=== PATIENT | female | born 1930 | race Caucasian/White ===

== ENCOUNTER 2019-11-11 11:07 | Inpatient (IN) ==
--- NOTE | 2019-11-11 11:38 | Emergency Department Note ---
SOB HPI General Chief Complaint: Shortness of Breath/Dyspnea Stated Complaint: SOB Time Seen by Provider: 11/11/19 11:15 Source: patient Mode of arrival: ambulatory Limitations: no limitations History of Present Illness HPI Narrative: 89-year-old female patient transferred to the emergency department from [facility] with chief complaint of worsening shortness of breath and lower extremity edema over the last 4 days. Patient admits to known history of congestive heart failure. She mentions her last 4 days she is experienced increasing lower extremity edema. She has been more short of breath and using her oxygen more frequently. She has been taking her medications as directed. She does admit to eating considerable amounts of sodium where she lives. She had a mild episode of left-sided chest pain yesterday. She denies chest pain or palpitations during today's visit. She mentions seeing a card iologist several months ago. She is unsure of her cardiogram was. ROS: Denies systemic illness, fever, sweats, chills. Denies runny nose, sinus congestion, or cough. Denies abdominal pain, nausea, vomiting, or diarrhea. Denies dysuria, hematuria, urinary frequency, or urinary urgency. Denies generalized or focal weakness. Related Data Home Medications Medication Instructions Recorded Confirmed melatonin 5 mg tablet 5 mg PO HS PRN tab 02/12/15 11/11/19 simvastatin 20 mg PO QDAY 11/11/19 11/11/19 trazodone 50 mg PO QHS PRN 11/11/19 11/11/19 Previous Rx's Medication Instructions Recorded Power Wheelchair #1 ea 12/08/18 hydrochlorothiazide 25 mg tablet 25 mg PO QDAY #90 tab 02/18/19 metformin 500 mg tablet,extended 1,000 mg PO BID #360 tab 06/01/19 release 24 hr OXYGEN #1 ea 07/13/19 furosemide 20 mg tablet See Rx Instructions PO QDAY #60 tab 07/22/19 levothyroxine 75 mcg tablet 75 mcg PO QDAY #90 tab 08/18/19 losartan 100 mg tablet 100 mg PO QDAY #90 tab 08/31/19 raloxifene 60 mg tablet 60 mg PO QDAY #90 tab 08/31/19 meclizine 25 mg tablet 25 mg PO BID PRN #30 tab 10/11/19 potassium chloride 10 mEq 10 meq PO QDAY #30 tab 10/11/19 tablet,extended release ropinirole 0.5 mg tablet 0.5 mg PO QHS #90 tab 10/11/19 hydrocodone 7.5 mg-acetaminophen 1 tab PO TID PRN #90 tab 10/19/19 325 mg tablet digoxin 125 mcg (0.125 mg) tablet 125 mcg PO QDAY 90 Days #90 tab 11/01/19 Allergies Allergy/AdvReac Type Severity Reaction Status Date / Time Penicillins [PENICILLINS] Allergy Unknown Rash Verified 10/11/19 10:04 iron AdvReac Unknown Diarrhea Verified 10/11/19 10:04 fosmax Allergy Unknown Shakiness Uncoded 10/11/19 10:04 Review of Systems All systems ED: reviewed and negative except as stated. [facility] Medical/Surgical/Family History All Active Problems (Updated 11/11/19 @ 14:11 by Alex Moody PA-C) Epistaxis (Acute) Heart failure (Acute) Acute on chronic congestive heart failure (Acute) Respiratory failure (Chronic) Diabetes mellitus (Chronic) Prediabetes (Chronic) Acute vestibular neuronitis (Chronic) Community acquired pneumonia (Chronic) Scoliosis (Chronic) Spinal stenosis (Chronic) Diarrhea (Chronic) Pruritus (Chronic) Obstructive sleep apnea (Chronic) Contusion of hip, right (Chronic) Urinary tract infection (Chronic) Fatigue (Chronic) Weakness of right leg (Chronic) History of tonsillectomy (Chronic) History of open reduction and internal fixation (ORIF) procedure (Chronic) History of laminectomy (Chronic) History of basal cell carcinoma (Chronic) History of adenoidectomy (Chronic) History of appendectomy (Chronic) Restless legs syndrome (Chronic) Osteopenia (Chronic) Osteoarthritis (Chronic) Menopausal and postmenopausal disorder (Chronic) Low back pain (Chronic) Acquired hypothyroidism (Chronic) Hypertension, essential (Chronic) Hyperlipidemia (Chronic) Left elbow fracture (Chronic) Colon cancer (Chronic) Anemia (Chronic) Medical History Acquired hypothyroidism (Chronic) Acute vestibular neuronitis (Chronic) Anemia (Chronic) Colon cancer (Chronic) Community acquired pneumonia (Chronic) Contusion of hip, right (Chronic) Diarrhea (Chronic) Fatigue (Chronic) Hyperlipidemia (Chronic) Hypertension, essential (Chronic) Left elbow fracture (Chronic) Low back pain (Chronic) Menopausal and postmenopausal disorder (Chronic) Obstructive sleep apnea (Chronic) Osteoarthritis (Chronic) Osteopenia (Chronic) Parkinson disease (Inactive) Prediabetes (Chronic) Pruritus (Chronic) Respiratory failure (Chronic) Restless legs syndrome (Chronic) Scoliosis (Chronic) Spinal stenosis (Chronic) Type 2 diabetes mellitus (Inactive) Urinary tract infection (Chronic) Weakness of right leg (Chronic) Worsening weakness in her right leg with increased pain Surgical History History of adenoidectomy (Chronic) History of appendectomy (Chronic) Ruptured History of basal cell carcinoma (Chronic) Back History of laminectomy (Chronic) Lumbar Fusion History of open reduction and internal fixation (ORIF) procedure (Chronic) L Elbow History of tonsillectomy (Chronic) Family History Father , of Colon Cancer 76y Malignant neoplasm of colon Mother , of Colon Cancer 89y Malignant neoplasm of colon Unknown Alzheimer's disease Essential hypertension Social History Smoking Status: Never smoker Alcohol Intake Frequency: a few times a month Substance Use: does not use Exam General Limitations: no limitations General appearance: other (Well-developed, well-nourished, very pleasant 89-year-old female patient laying semirecumbent on the emergency room gurney in mild respiratory distress. She is not tachypneic. However, she does speak in broken sentences. She is currently on oxygen at 2 L via nasal cannula. Her oxygen saturations are good at 96%. She is afebrile and normotensive.) Head Head: atraumatic and normocephalic Eye Eye: Present normal appearance, PERRL and EOMI; Absent scleral icterus and conjunctival injection ENT ENT: Present normal oropharynx and mucous membranes moist Neck Neck: Present trachea midline; Absent lymphadenopathy Chest Chest: Present symmetric chest wall rise Respiratory Respiratory: Present respiratory distress (Mild respiratory distress), rales/crackles (Crackles heard to the bases and mid chest bilateral.) and decreased breath sounds; Absent normal lung sounds bilaterally, wheezes, stridor, accessory muscle use and prolonged expiratory phase Cardiovascular Cardiovascular: Present regular rate, normal rhythm and systolic murmur; Absent diastolic murmur Adbominal Abdominal: Present soft, tenderness (Mild diffuse tenderness to palpation throughout the abdomen.) and normal bowel sounds; Absent distention, guarding, rebound, rigidity, organomegaly and mass Extremities Extremities: Present full ROM, tenderness (Moderate tenderness palpation throughout the ankle and calves bilateral.), normal capillary refill and pedal edema (+12 pitting edema from the ankles to midcalf bilateral.); Absent normal inspection (Overlying lower extremity dermis is erythematous and taut appearing.) and cyanosis Neurological Neurological: Present alert, oriented X3 and reflexes normal; Absent motor sensory deficit Psychiatric Psychiatric: Present normal affect, normal mood and pleasant Skin Skin: Present warm, dry and normal color (With the exception of the erythema to the lower extremities.) Course Course Course Narrative: Patient has known history of congestive heart failure. She mentions her weight normally fluctuates from 140-145 pounds. However, her weight today is 167pounds but I am unsure of the chronicity of the increase. I am going to order a portable chest x-ray looking for pulmonary edema. We will e valuate her kidney functions prior to diuresis. Chemistry panel shows BUN 12 and creatinine 0.9. With this in mind patient was given 40 mg of Lasix IVP. Portable chest x-ray showed moderate left and small right by basilar infiltrates and small effusions progressing. There is also mention of mild CHF. I discussed the x-ray findings with my collaborating physician (Dr. Boyle) and at this time he recommended discussing the case with the radiologist to determine if these effusions are amicable to draining. I discussed thoracentesis with the radiologist (Dr. Hager) who mention that the effusions are much too small to be drained. I reviewed the patient's other diagnostics and they show the following: CBC hemoglobin 10.1, hematocrit 32.4, all others the normal limits. CMP glucose 110, all others normal limits. Troponin less than 0.01. proBNP 5323. Patient has been up to use the restroom multiple times. Nursing staff was unable to capture the for several voids. However they have captured the last 2 or 3. Patient has had 300-400 mL's out that has been measured. Upon reassessment patient tells me she is feeling a bit better. She tells me that she has less noticeable swelling in her lower extremities. Due to the patient's history of CHF and demonstrated clinical improvement the hospitalist (Dr. Garland) was consulted possible admission. I discussed the case with the hospitalist who concurred that the patient should likely stay for continued treatment. Next, I discussed admission with the patient who verbalized understanding. Patient is going to be admitted to the facility under the care of the hospitalist. All further treatment decisions, modalities, and ultimate patient disposition will be carried out by the hospitalist. Vital Signs Vital signs: Vital Signs Temperature 98.1 F 11/11/19 11:08 Pulse Rate 79 11/11/19 11:08 Respiratory Rate 20 11/11/19 11:08 Blood Pressure 136/74 11/11/19 11:08 Pulse Oximetry (%) 96 11/11/19 11:08 Temperature 98.1 F 11/11/19 11:08 Pulse Rate 91 H 11/11/19 15:47 Respiratory Rate 25 H 11/11/19 15:56 Blood Pressure 153/95 11/11/19 15:56 Pulse Oximetry (%) 93 11/11/19 15:47 [facility] Lab Data Lab results reviewed: Yes I reviewed the patient's lab results. Result diagrams: 11/11/19 11:40 11/11/19 14:34 Labs: Lab Results 11/11/19 11/11/19 11/11/19 Range/Units 11:40 11:40 11:40 WBC 7.3 (4.50-11.00) K/mcL RBC 4.17 (3.59-5.38) M/mcL Hgb 10.1 L (11.2-15.7) g/dL Hct 32.4 L (34.1-44.9) % POC Hct 33.0 L (36.0-48.0) % MCV 77.7 L (80.0-100.0) fL MCH 24.2 L (26.0-34.0) pg MCHC 31.2 (31.0-36.0) g/dL RDW 16.1 H (11.5-14.5) % Plt Count 280 (140-440) K/mcL MPV 9.4 (7.4-10.4) fL Gran % 69.0 (38.0-78.0) % Lymph % (Auto) 21.5 (15.5-49.0) % [place] % (Auto) 7.5 (1.0-12.0) % Eos % (Auto) 1.6 (0.0-7.0) % Baso % (Auto) 0.4 (0.0-2.0) % Gran # 5.03 (1.80-8.00) K/mcL Lymph # (Auto) 1.57 (1.50-4.80) K/mcL [place] # (Auto) 0.55 (0.10-0.90) K/mcL Eos # (Auto) 0.12 (0.00-0.70) K/mcL Baso # (Auto) 0.03 (0.00-0.30) K/mcL POC Sodium 137 (133-145) mmol/L Sodium 135 (133-145) mmol/L POC Potassium 4.5 (3.3-5.1) mmol/L Potassium 4.4 (3.3-5.1) mmol/L POC Chloride 101 (96-108) mmol/L Chloride 102 (96-108) mmol/L Carbon Dioxide 22 (22-30) mmol/L POC Total CO2 23 (22-30) mmol/L Anion Gap 11.0 (8-16) POC BUN 12 (8-23) mg/dl BUN 13 (8-23) mg/dl Creatinine 0.9 (0.6-1.1) mg/dl POC Creatinine 0.9 (0.6-1.1) mg/dl GFR Calculation 57 Glucose 110 H (70-105) mg/dL POC Glucose 109 H (70-105) mg/dL Calcium 9.0 (8.6-10.4) mg/dl POC WB Ioniz Calcium 1.18 (1.16-1.32) mmol/L Total Bilirubin 0.5 (0.0-1.0) mg/dL AST 16 (0-37) U/l ALT 6 (0-40) U/l Alkaline Phosphatase 65 (39-117) U/L Troponin T < 0.01 (0-0.03) ng/ml NT-Pro-B Natriuret Pep 5323.0 H (0-450) pg/ml Total Protein 6.5 (5.9-8.4) gm/dL Albumin 3.8 (3.2-5.2) gm/dL Globulin 2.7 (2.2-3.7) gm/dL Albumin/Globulin Ratio 1.4 (1.0-2.3) Urine Color Urine Appearance Urine pH (5.0-9.0) Ur Specific [place] (1.000-1.035) Urine Protein (NEG) mg/dL Urine Glucose (UA) (NEG) mg/dL Urine Ketones (NEG) mg/dL Urine Occult Blood (<0.03) mg/dL Urine Nitrate (NEG) Urine Bilirubin (NEG) mg/dL Urine Urobilinogen (NEG) mg/dL Ur Leukocyte Esterase (NEG) /uL Urine RBC (0-1) /hpf Urine WBC (0-4) /hpf Ur Squamous Epith Cells (0-4) /hpf Ur Transition Epith Cell (0-2) /hpf Urine Bacteria (0) /hpf Urine Mucus (0) /hpf Ur Culture Indicated? 11/11/19 11/11/19 11/11/19 Range/Units 12:45 14:34 14:34 WBC (4.50-11.00) K/mcL RBC (3.59-5.38) M/mcL Hgb (11.2-15.7) g/dL Hct (34.1-44.9) % POC Hct (36.0-48.0) % MCV (80.0-100.0) fL MCH (26.0-34.0) pg MCHC (31.0-36.0) g/dL RDW (11.5-14.5) % Plt Count (140-440) K/mcL MPV (7.4-10.4) fL Gran % (38.0-78.0) % Lymph % (Auto) (15.5-49.0) % [place] % (Auto) (1.0-12.0) % Eos % (Auto) (0.0-7.0) % Baso % (Auto) (0.0-2.0) % Gran # (1.80-8.00) K/mcL Lymph # (Auto) (1.50-4.80) K/mcL [place] # (Auto) (0.10-0.90) K/mcL Eos # (Auto) (0.00-0.70) K/mcL Baso # (Auto) (0.00-0.30) K/mcL POC Sodium (133-145) mmol/L Sodium 141 (133-145) mmol/L POC Potassium (3.3-5.1) mmol/L Potassium 3.9 (3.3-5.1) mmol/L POC Chloride (96-108) mmol/L Chloride 101 (96-108) mmol/L Carbon Dioxide 26 (22-30) mmol/L POC Total CO2 (22-30) mmol/L Anion Gap 14.0 (8-16) POC BUN (8-23) mg/dl BUN 13 (8-23) mg/dl Creatinine 1.0 (0.6-1.1) mg/dl POC Creatinine (0.6-1.1) mg/dl GFR Calculation 51 Glucose 96 (70-105) mg/dL POC Glucose (70-105) mg/dL Calcium 9.4 (8.6-10.4) mg/dl POC WB Ioniz Calcium (1.16-1.32) mmol/L Total Bilirubin 0.5 (0.0-1.0) mg/dL AST 17 (0-37) U/l ALT 8 (0-40) U/l Alkaline Phosphatase 75 (39-117) U/L Troponin T < 0.01 (0-0.03) ng/ml NT-Pro-B Natriuret Pep (0-450) pg/ml Total Protein 7.0 (5.9-8.4) gm/dL Albumin 4.3 (3.2-5.2) gm/dL Globulin 2.7 (2.2-3.7) gm/dL Albumin/Globulin Ratio 1.6 (1.0-2.3) Urine Color Yellow Urine Appearance Clear Urine pH 6.0 (5.0-9.0) Ur Specific [place] 1.010 (1.000-1.035) Urine Protein 30 A (NEG) mg/dL Urine Glucose (UA) Negative (NEG) mg/dL Urine Ketones Neg (NEG) mg/dL Urine Occult Blood Neg (<0.03) mg/dL Urine Nitrate Pos A (NEG) Urine Bilirubin Neg (NEG) mg/dL Urine Urobilinogen Neg (NEG) mg/dL Ur Leukocyte Esterase 75 A (NEG) /uL Urine RBC 1 (0-1) /hpf Urine WBC 24 H (0-4) /hpf Ur Squamous Epith Cells 1 (0-4) /hpf Ur Transition Epith Cell < 1 (0-2) /hpf Urine Bacteria Few A (0) /hpf Urine Mucus Few (0) /hpf Ur Culture Indicated? Yes Radiology Data Radiology results reviewed: Yes I reviewed the patient's radiology results. Radiology results narrative: Ordering Physician: Alex Moody PA-C Date of Service: 11/11/19 Procedure(s): XR chest 1V portable Accession Number(s): [id number] CLINICAL INFORMATION: Worsening shortness of breath/lower extremity edema. History of CHF. COMPARISON: 06/05/2005 and 07/23/2019 chest x-ray FINDINGS: Moderate cardiomegaly is unchanged. Mediastinum is unremarkable. The pulmonary vessels are mildly distended. No definite interstitial edema.. Moderate left and small right basilar infiltrates and small bilateral pleural effusions have progressed. IMPRESSION: Moderate left and small right basilar infiltrates and small effusions progressing. Mild CHF Interpreted and Authenticated by: Poncho Hager 11/11/19 Discharge Plan Patient/Caregiver Discharge Instructions Pt seen by HERB DOCTOR/PA only: Yes Clinical Impression: Acute on chronic congestive heart failure Qualifiers: Heart failure type: unspecified Qualified Code(s): I50.9 - Heart failure, unspecified Prescriptions: No Action hydrochlorothiazide 25 mg tablet 25 mg PO QDAY Qty: 90 RF: 1 metformin 500 mg tablet extended release 24 hr 1,000 mg PO BID Qty: 360 RF: 0 (DME) OXYGEN Qty: 1 RF: 0 furosemide 20 mg tablet See Rx Instructions PO QDAY Qty: 60 RF: 1 levothyroxine [Synthroid] 75 mcg tablet 75 mcg PO QDAY Qty: 90 RF: 1 losartan [Cozaar] 100 mg tablet 100 mg PO QDAY Qty: 90 RF: 1 raloxifene [Evista] 60 mg tablet 60 mg PO QDAY Qty: 90 RF: 1 hydrocodone-acetaminophen [Lorcet Plus] 7.5-325 mg tablet 1 tab PO TID PRN (Reason: pain) Qty: 90 RF: 0 digoxin [Lanoxin] 125 mcg (0.125 mg) tablet 125 mcg PO QDAY 90 Days Qty: 90 RF: 1 melatonin 5 mg tablet 5 mg PO HS PRN (Reason: Sleep) RF: 0 (DME) Power Wheelchair Qty: 1 RF: 0 meclizine 25 mg tablet 25 mg PO BID PRN (Reason: vertigo) Qty: 30 RF: 2 ropinirole 0.5 mg tablet 0.5 mg PO QHS Qty: 90 RF: 1 potassium chloride 10 mEq tablet extended release 10 meq PO QDAY Qty: 30 RF: 2 simvastatin 20 mg Tablet 20 mg PO QDAY RF: 0 trazodone 50 mg tablet 50 mg PO QHS PRN (Reason: Insomnia) RF: 0 Follow up with: Thierno Knutson MD [Primary Care Provider] - Patient Disposition: Xfer As Inpt ([facility]) Condition: Good
[2019-11-11 11:44] LABS: POC Blood Urea Nitrogen 12 mg/dl (8-23); POC CO2 23 mmol/L (22-30); POC Calcium, Ionized 1.18 mmol/L (1.16-1.32); POC Chloride 101 mmol/L (96-108); POC Creatinine 0.9 mg/dl (0.6-1.1); POC Glucose, Random 109 mg/dL (70-105); POC Potassium 4.5 mmol/L (3.3-5.1); POC Sodium 137 mmol/L (133-145)
[2019-11-11] MEDS ORDERED: FUROSEMIDE 40 MG/4 ML VIAL IV ONE (11:57)
--- NOTE | 2019-11-11 12:16 | XRay Report ---
CLINICAL INFORMATION: Worsening shortness of breath/lower extremity edema. History of CHF. COMPARISON: 06/05/2005 and 07/23/2019 chest x-ray FINDINGS: Moderate cardiomegaly is unchanged. Mediastinum is unremarkable. The pulmonary vessels are mildly distended. No definite interstitial edema.. Moderate left and small right basilar infiltrates and small bilateral pleural effusions have progressed. IMPRESSION: Moderate left and small right basilar infiltrates and small effusions progressing. Mild CHF Interpreted and Authenticated by: Poncho Hager 11/11/19
[2019-11-11 12:27] LABS: Basophils # (Auto) 0.03 K/mcL (0.00-0.30); Basophils % (Auto) 0.4 % (0.0-2.0); Eosinophils # (Auto) 0.12 K/mcL (0.00-0.70); Eosinophils % (Auto) 1.6 % (0.0-7.0); Hematocrit 32.4 % (34.1-44.9); Hemoglobin 10.1 g/dL (11.2-15.7); Lymphocytes # (Auto) 1.57 K/mcL (1.50-4.80); Lymphocytes % (Auto) 21.5 % (15.5-49.0); Mean Cell Volume 77.7 fL (80.0-100.0); Mean Corpuscular HGB Conc 31.2 g/dL (31.0-36.0); Mean Platelet Volume 9.4 fL (7.4-10.4); Monocytes # (Auto) 0.55 K/mcL (0.10-0.90); Monocytes % (Auto) 7.5 % (1.0-12.0); Platelet Count 280 K/mcL (140-440); RBC 4.17 M/mcL (3.59-5.38); Red Cell Distribution Width 16.1 % (11.5-14.5); WBC 7.3 K/mcL (4.50-11.00)
[2019-11-11 12:52] LABS: ALT/SGPT 6 U/l (0-40); AST/SGOT 16 U/l (0-37); Albumin 3.8 gm/dL (3.2-5.2); Albumin/Globulin Ratio 1.4 (1.0-2.3); Alkaline Phosphatase 65 U/L (39-117); Bilirubin,Total 0.5 mg/dL (0.0-1.0); Blood Urea Nitrogen 13 mg/dl (8-23); Carbon Dioxide 22 mmol/L (22-30); Chloride 102 mmol/L (96-108); Globulin 2.7 gm/dL (2.2-3.7); Glomerular Filtration Rate 57; Glucose 110 mg/dL (70-105)
[2019-11-11 13:40] LABS: Appearance,Urine CLEAR; Bacteria,Urine FEW /hpf (0); Bilirubin,Urine NEG (NEG); Color,Urine YELLOW; Culture Indicated,Urine YES; Glucose,Urine (UA) NEGATIVE (NEG); Ketones,Urine NEG (NEG); Leukocyte Esterase,Urine 75 /uL (NEG); Mucus,Urine FEW /hpf (0); Nitrate,Urine POS (NEG); Protein,Urine 30 mg/dL (NEG); Urine Blood NEG mg/dL (<0.03); Urine RBC 1 /hpf (0-1); Urine Squamous Epithelial Cell 1 /hpf (0-4); Urine Transitional Epi Cells < 1 /hpf (0-2); Urine WBC 24 /hpf (0-4); Urobilinogen,Urine NEG (NEG)
[2019-11-11] MEDS ORDERED: ONDANSETRON 4 MG/2 ML VIAL IV PRN (13:59)
[2019-11-11] MEDS ORDERED: LACTULOSE 20 GM/30 ML ORAL.SOL PO PRN (13:59)
[2019-11-11] MEDS ORDERED: SENNOSIDES 1 TABLET PO PRN (13:59)
[2019-11-11 15:53] LABS: ALT/SGPT 8 U/l (0-40); AST/SGOT 17 U/l (0-37); Albumin 4.3 gm/dL (3.2-5.2); Albumin/Globulin Ratio 1.6 (1.0-2.3); Alkaline Phosphatase 75 U/L (39-117); Bilirubin,Total 0.5 mg/dL (0.0-1.0); Blood Urea Nitrogen 13 mg/dl (8-23); Calcium 9.4 mg/dl (8.6-10.4); Carbon Dioxide 26 mmol/L (22-30); Chloride 101 mmol/L (96-108); Globulin 2.7 gm/dL (2.2-3.7); Glomerular Filtration Rate 51; Glucose 96 mg/dL (70-105)
[2019-11-11] MEDS: FUROSEMIDE 40 MG/4 ML VIAL IV SCH (16:49)
[2019-11-11] MEDS: 0.9 % SODIUM CHLORIDE 10 ML SYRINGE IV SCH ×2 (16:50→21:12)
[2019-11-11] MEDS: HYDROcodone/APAP 5/325MG TABLET PO SCH ×2 (17:57→21:47)
[2019-11-11] MEDS ORDERED: HYDROcodone/APAP 5/325MG TABLET PO ONE ×2 (17:59→21:39)
[2019-11-11] MEDS ORDERED: NON FORMULARY MEDICATION 1 DOSE MISCELL (Melatonin 5 MG) PO PRN (19:58)
[2019-11-11] MEDS ORDERED: traZODone HCL 50 MG TABLET PO PRN (19:58)
[2019-11-11] MEDS: HEPARIN 5,000 UNIT/ML VIAL SQ SCH (21:12)
[2019-11-11] MEDS: DOCUSATE SODIUM 100 MG CAPSULE PO SCH (21:12)
[2019-11-11] MEDS ORDERED: MELATONIN 3 MG TABLET PO ONE (21:40)
[2019-11-11] MEDS ORDERED: traZODone HCL 50 MG TABLET ONE (21:40)
[2019-11-11] MEDS: rOPINIRole 0.25 MG TABLET PO SCH (21:58)
--- NOTE | 2019-11-11 22:48 | Internal Med History&Physical ---
HPI History of Present Illness Patient information: Note initiated : 11/11/19 at 10:45 pm Service Date, if different from initiated Date: [] Patient: Zeinab Funez a 89 y/o F admitted on 11/11/19 for Shortness of breath. Chief Complaint: This is a 89-year-old female with a history of spinal scoliosis status post surgery and chronic pain, history of type 2 diabetes, essential hypertension, hyperlipidemia, hypothyroidism was brought to the ED because of worsening tiredness, shortness of breath with activities and worsening bilateral leg swelling. Patient recently diagnosed with a mitral regurgitation and tricuspid regurgitation which was incidental and since then patient have activities limited and shortness of breath was a major issue which has been progressively worse over the last 2 weeks and her leg swelling has been worsening. Patient takes hydrochlorothiazide and Lasix p.o. without any improvement. Patient was evaluated in the ED and found her to be having acute congestive heart failure based on chest x-ray and with activity she became hypoxic unable to mobilize. Initial work-up negative for sepsis or respiratory infections. History of present illness: Ms. Funez is a 89 year old F Constitutional Constitutional: Present fatigue, lethargy, snoring and weakness; Absent chills, excessive sweating and frequent falls EENT Eyes: Absent blind spots, decreased night vision, discharge, dry eye, floaters and irritation Ears: Absent as per HPI, decreased hearing, ear pain and tinnitus Nose, mouth and throat: Absent change in voice, dizziness, epistaxis and headache(s) Cardiovascular Cardiovascular: Present chest pain with activity, edema, leg edema, orthopnea an d pedal edema; Absent diaphoresis, irregular heart rhythm, palpatations and syncope Respiratory Respiratory: Present dyspnea, dyspnea on exertion and snoring; Absent hemoptysis, pain on inspirtation and chest congestion Gastrointestinal Gastrointestinal: Absent change in bowel habits, constipation, dyspepsia and excessive flatus Genitourinary Genitourinary: Present nipple discharge; Absent difficulty voiding, dysuria, genital pruritis and post void dribbling Musculoskeletal Musculoskeletal: Present abnormal gait, back pain and muscle weakness Neurological Neurological: Absent memory loss, radicular pain, syncope and vertigo Endocrine Endocrine: Absent deeping of the voice, flushing and palpitations Hematologic/Lymphatic Hematologic/Lymphatic: Absent easy bleeding and lymphadenopathy [facility] Medical History Acquired hypothyroidism (Chronic) Acute vestibular neuronitis (Chronic) Anemia (Chronic) Colon cancer (Chronic) Community acquired pneumonia (Chronic) Contusion of hip, right (Chronic) Diarrhea (Chronic) Fatigue (Chronic) Hyperlipidemia (Chronic) Hypertension, essential (Chronic) Left elbow fracture (Chronic) Low back pain (Chronic) Menopausal and postmenopausal disorder (Chronic) Obstructive sleep apnea (Chronic) Osteoarthritis (Chronic) Osteopenia (Chronic) Parkinson disease (Inactive) Prediabetes (Chronic) Pruritus (Chronic) Respiratory failure (Chronic) Restless legs syndrome (Chronic) Scoliosis (Chronic) Spinal stenosis (Chronic) Type 2 diabetes mellitus (Inactive) Urinary tract infection (Chronic) Weakness of right leg (Chronic) Worsening weakness in her right leg with increased pain Surgical History History of adenoidectomy (Chronic) History of appendectomy (Chronic) Ruptured History of basal cell carcinoma (Chronic) Back History of laminectomy (Chronic) Lumbar Fusion History of open reduction and internal fixation (ORIF) procedure (Chronic) L Elbow History of tonsillectomy (Chronic) Family History Father , of Colon Cancer 76y Malignant neoplasm of colon Mother , of Colon Cancer 89y Malignant neoplasm of colon Unknown Alzheimer's disease Essential hypertension Social History (Updated 10/14/19 @ 08:10 by Thierno Knutson MD) marital status: education level: college occupational status: retired other: 2 Children, 2 Grandchildren, 4 Great Grandchildren smoking status: Unknown if ever smoked alcohol intake frequency: a few times a month substance use type: does not use MEDS/ALLERGIES Home Medications and Allergies Home Medications Medication Instructions Recorded Confirmed Type melatonin 5 mg tablet 5 mg PO HS PRN tab 02/12/15 11/11/19 History Power Wheelchair #1 ea 12/08/18 11/11/19 Rx hydrochlorothiazide 25 mg tablet 25 mg PO QDAY #90 tab 02/18/19 11/11/19 Rx metformin 500 mg tablet,extended 1,000 mg PO BID #360 tab 06/01/19 11/11/19 Rx release 24 hr OXYGEN #1 ea 07/13/19 11/11/19 Rx furosemide 20 mg tablet See Rx Instructions PO QDAY #60 tab 07/22/19 11/11/19 Rx levothyroxine 75 mcg tablet 75 mcg PO QDAY #90 tab 08/18/19 11/11/19 Rx losartan 100 mg tablet 100 mg PO QDAY #90 tab 08/31/19 11/11/19 Rx raloxifene 60 mg tablet 60 mg PO QDAY #90 tab 08/31/19 11/11/19 Rx meclizine 25 mg tablet 25 mg PO BID PRN #30 tab 10/11/19 11/11/19 Rx potassium chloride 10 mEq 10 meq PO QDAY #30 tab 10/11/19 11/11/19 Rx tablet,extended release ropinirole 0.5 mg tablet 0.5 mg PO QHS #90 tab 10/11/19 11/11/19 Rx hydrocodone 7.5 mg-acetaminophen 1 tab PO TID PRN #90 tab 10/19/19 11/11/19 Rx 325 mg tablet digoxin 125 mcg (0.125 mg) tablet 125 mcg PO QDAY 90 Days #90 tab 11/01/19 11/11/19 Rx simvastatin 20 mg PO QDAY 11/11/19 11/11/19 History trazodone 50 mg PO QHS PRN 11/11/19 11/11/19 History Allergies Allergy/AdvReac Type Severity Reaction Status Date / Time Penicillins [PENICILLINS] Allergy Mild Rash Verified 11/11/19 21:39 alendronate sodium AdvReac Intermediate Shakiness Verified 11/11/19 21:39 iron AdvReac Mild Diarrhea Verified 11/11/19 21:39 EXAM Constitutional Vitals: Temp Pulse Resp BP Pulse Ox 98.1 F 85 24 H 152/93 91 11/11/19 16:17 11/11/19 16:46 11/11/19 16:56 11/11/19 16:46 11/11/19 16:46 General appearance: cooperative, mild distress and obese Head Head exam: Present atraumatic and normal inspection Eye Eye exam: Present EOMI; Absent periorbital swelling and scleral icterus ENT ENT exam: Present normal exam; Absent normal oropharynx Neck Neck exam: Present normal inspection; Absent lymphadenopathy and tenderness Respiratory Respiratory exam: Present decreased breath sounds, rales and wheezes; Absent accessory muscle use and prolonged expiratory phase Cardiovascular Cardiovascular exam: Present diastolic murmur, irregular rhythm, +S3 and systolic murmur GI/Abdominal GI/Abdominal exam: Present distended; Absent guarding, hernia and tenderness Extremities Exam Extremities exam: Present pedal edema; Absent tenderness Back Exam Back exam: Absent CVA tenderness (L), CVA tenderness (R), muscle spasm and paraspinal tenderness Neurological Exam Neurological exam: Present abnormal gait, alert, CN II-XII intact, oriented X3 and reflexes normal; Absent motor sensory deficit Psychiatric Psychiatric exam: Absent agitated, anxious and depressed DATA Data Completed and Pending Labs on day of discharge: Labs from last 24 hours 11/11/19 11/11/19 11/11/19 20:15 14:34 14:34 WBC RBC Hgb Hct POC Hct MCV MCH MCHC RDW Plt Count MPV Gran % Lymph % (Auto) [place] % (Auto) Eos % (Auto) Baso % (Auto) Gran # Lymph # (Auto) [place] # (Auto) Eos # (Auto) Baso # (Auto) POC Sodium Sodium 141 POC Potassium Potassium 3.9 POC Chloride Chloride 101 Carbon Dioxide 26 POC Total CO2 Anion Gap 14.0 POC BUN BUN 13 Creatinine 1.0 POC Creatinine GFR Calculation 51 Glucose 96 POC Glucose Calcium 9.4 POC WB Ioniz Calcium Total Bilirubin 0.5 AST 17 ALT 8 Alkaline Phosphatase 75 Troponin T Pending < 0.01 NT-Pro-B Natriuret Pep Total Protein 7.0 Albumin 4.3 Globulin 2.7 Albumin/Globulin Ratio 1.6 Urine Color Urine Appearance Urine pH Ur Specific [place] Urine Protein Urine Glucose (UA) Urine Ketones Urine Occult Blood Urine Nitrate Urine Bilirubin Urine Urobilinogen Ur Leukocyte Esterase Urine RBC Urine WBC Ur Squamous Epith Cells Ur Transition Epith Cell Urine Bacteria Urine Mucus Ur Culture Indicated? 11/11/19 11/11/19 11/11/19 12:45 11:40 11:40 WBC RBC Hgb Hct POC Hct 33.0 L MCV MCH MCHC RDW Plt Count MPV Gran % Lymph % (Auto) [place] % (Auto) Eos % (Auto) Baso % (Auto) Gran # Lymph # (Auto) [place] # (Auto) Eos # (Auto) Baso # (Auto) POC Sodium 137 Sodium 135 POC Potassium 4.5 Potassium 4.4 POC Chloride 101 Chloride 102 Carbon Dioxide 22 POC Total CO2 23 Anion Gap 11.0 POC BUN 12 BUN 13 Creatinine 0.9 POC Creatinine 0.9 GFR Calculation 57 Glucose 110 H POC Glucose 109 H Calcium 9.0 POC WB Ioniz Calcium 1.18 Total Bilirubin 0.5 AST 16 ALT 6 Alkaline Phosphatase 65 Troponin T < 0.01 NT-Pro-B Natriuret Pep 5323.0 H Total Protein 6.5 Albumin 3.8 Globulin 2.7 Albumin/Globulin Ratio 1.4 Urine Color Yellow Urine Appearance Clear Urine pH 6.0 Ur Specific [place] 1.010 Urine Protein 30 A Urine Glucose (UA) Negative Urine Ketones Neg Urine Occult Blood Neg Urine Nitrate Pos A Urine Bilirubin Neg Urine Urobilinogen Neg Ur Leukocyte Esterase 75 A Urine RBC 1 Urine WBC 24 H Ur Squamous Epith Cells 1 Ur Transition Epith Cell < 1 Urine Bacteria Few A Urine Mucus Few Ur Culture Indicated? Yes 11/11/19 11:40 WBC 7.3 RBC 4.17 Hgb 10.1 L Hct 32.4 L POC Hct MCV 77.7 L MCH 24.2 L MCHC 31.2 RDW 16.1 H Plt Count 280 MPV 9.4 Gran % 69.0 Lymph % (Auto) 21.5 [place]rie % (Auto) 7.5 Eos % (Auto) 1.6 Baso % (Auto) 0.4 Gran # 5.03 Lymph # (Auto) 1.57 G[place]rie # (Auto) 0.55 Eos # (Auto) 0.12 Baso # (Auto) 0.03 POC Sodium Sodium POC Potassium Potassium POC Chloride Chloride Carbon Dioxide POC Total CO2 Anion Gap POC BUN BUN Creatinine POC Creatinine GFR Calculation Glucose POC Glucose Calcium POC WB Ioniz Calcium Total Bilirubin AST ALT Alkaline Phosphatase Troponin T NT-Pro-B Natriuret Pep Total Protein Albumin Globulin Albumin/Globulin Ratio Urine Color Urine Appearance Urine pH Ur Specific [place] Urine Protein Urine Glucose (UA) Urine Ketones Urine Occult Blood Urine Nitrate Urine Bilirubin Urine Urobilinogen Ur Leukocyte Esterase Urine RBC Urine WBC Ur Squamous Epith Cells Ur Transition Epith Cell Urine Bacteria Urine Mucus Ur Culture Indicated? A/P Narrative A/P Narrative: Narrative: Acute congestive heart failure Probable right-sided heart failure Probable due to valvular heart disease Echocardiogram in April 2019 showed evidence of moderate mitral regu rgitation, moderate tricuspid regurgitation and pulmonary hypertension Worsening lower extremity edema no significant hypoxia Patient was on hydrochlorothiazide and furosemide proBNP was elevated No evidence of renal failure Plan Patient unable to mobilize and with activity she became hypoxic and short of breath She is volume dependent so we will do gentle diuresis Started on IV Lasix 40 twice daily Monitor urine output and creatinine and electrolytes and telemetry monitoring Echocardiogram ordered Trend the troponin Type 2 diabetes He was on metformin and we will hold the metformin Sliding scale insulin Spinal scoliosis Chronic pain status post surgery Continue her home pain medications Essential hypertension We will continue her home medications Once her blood pressure Losartan 100 mg continue History of breast cancer Continued raloxifene Hyperlipidemia Continued simvastatin Insomnia Continue trazodone and electronic DVT prophylaxis-subcu heparin CODE [id number] with the patient Expected length of stay-1-2 midnights CPT code 40818 Time Spent With Patient Time: Total time spent is greater than 50% in coordination of care (as documented) at patient's floor/unit and/or counseling patient: QUALITY Stroke Symptom Onset Unknown: No VTE Deep Vein Thrombosis/Pulmonary Embolism Present on Admission: No
[2019-11-12] MEDS ORDERED: HALOPERIDOL LACTATE 5 MG/ML VIAL IV ONE (03:38)
[2019-11-12] MEDS ORDERED: HALOPERIDOL LACTATE 5 MG/ML VIAL ONE (03:44)
[2019-11-12 04:03] LABS: Basophils # (Auto) 0.03 K/mcL (0.00-0.30); Basophils % (Auto) 0.4 % (0.0-2.0); Eosinophils # (Auto) 0.16 K/mcL (0.00-0.70); Eosinophils % (Auto) 2.2 % (0.0-7.0); Hematocrit 30.4 % (34.1-44.9); Hemoglobin 9.4 g/dL (11.2-15.7); Lymphocytes # (Auto) 2.27 K/mcL (1.50-4.80); Mean Cell Volume 78.6 fL (80.0-100.0); Mean Corpuscular HGB Conc 30.9 g/dL (31.0-36.0); Mean Platelet Volume 9.7 fL (7.4-10.4); Monocytes # (Auto) 0.54 K/mcL (0.10-0.90); Monocytes % (Auto) 7.4 % (1.0-12.0); Platelet Count 269 K/mcL (140-440); RBC 3.87 M/mcL (3.59-5.38); WBC 7.3 K/mcL (4.50-11.00)
[2019-11-12 04:15] LABS: ALT/SGPT 6 U/l (0-40); AST/SGOT 15 U/l (0-37); Albumin 3.6 gm/dL (3.2-5.2); Albumin/Globulin Ratio 1.6 (1.0-2.3); Alkaline Phosphatase 62 U/L (39-117); Bilirubin,Total 0.4 mg/dL (0.0-1.0); Blood Urea Nitrogen 13 mg/dl (8-23); Calcium 8.6 mg/dl (8.6-10.4); Carbon Dioxide 28 mmol/L (22-30); Chloride 96 mmol/L (96-108); Globulin 2.3 gm/dL (2.2-3.7); Glomerular Filtration Rate 51; Glucose 99 mg/dL (70-105)
[2019-11-12] MEDS: 0.9 % SODIUM CHLORIDE 10 ML SYRINGE IV SCH ×6 (05:52→20:18)
[2019-11-12] MEDS: ACETAMINOPHEN 325 MG TABLET PO PRN ×2 (06:52→13:23)
[2019-11-12] MEDS: PANTOPRAZOLE 40 MG TABLET PO SCH (07:00)
[2019-11-12] MEDS: LEVOTHYROXINE 75 MCG TABLET PO SCH (07:24)
[2019-11-12] MEDS: POTASSIUM CHLORIDE 10 MEQ TABLET PO SCH (08:50)
[2019-11-12] MEDS: HYDROcodone/APAP 5/325MG TABLET PO SCH ×3 (08:50→20:18)
[2019-11-12] MEDS: LOSARTAN 50 MG TABLET PO SCH (09:02)
[2019-11-12] MEDS: DOCUSATE SODIUM 100 MG CAPSULE PO SCH ×2 (09:02→20:18)
[2019-11-12] MEDS: SIMVASTATIN 20 MG TABLET PO SCH (09:03)
[2019-11-12] MEDS: RALOXIFENE HCL 60 MG TABLET PO SCH (09:04)
[2019-11-12] MEDS: HEPARIN 5,000 UNIT/ML VIAL SQ SCH ×2 (09:04→20:17)
[2019-11-12] MEDS: FUROSEMIDE 40 MG/4 ML VIAL IV SCH ×2 (09:04→16:30)
[2019-11-12] MEDS ORDERED: QUEtiapine 25 MG TABLET PO ONE (11:24)
[2019-11-12] MEDS: cefTRIAXone 2 GM in DEXTROSE 5% IN WATER 50 ML IV SCH (11:38)
[2019-11-12] MEDS ORDERED: DEXTROSE 31 GM ORAL.SUSP PO PRN (12:32)
[2019-11-12] MEDS ORDERED: DEXTROSE 50% 50 ML VIAL IV PRN (12:32)
--- NOTE | 2019-11-12 12:35 | Internal Med Progress Note ---
SUBJECTIVE Subjective Patient information: Note initiated : 11/12/19 at 12:33 pm Service Date, if different from initiated Date: [] Patient: Zeinab Funez 89 y/o F admitted on 11/11/19 for Shortness of breath. Chief Complaint: Interval history: Narrative: This is a 89-year-old female with a history of spinal scoliosis status post surgery and chronic pain, history of type 2 diabetes, essential hypertension, hyperlipidemia, hypothyroidism was brought to the ED because of worsening tiredness, shortness of breath with activities and worsening bilateral leg swelling. Patient recently diagnosed with a mitral regurgitation and tricuspid regurgitation which was incidental and since then patient have activities limited and shortness of breath was a major issue which has been progressively worse over the last 2 weeks and her leg swelling has been worsening. Patient takes hydrochlorothiazide and Lasix p.o. without any improvement. Patient was evaluated in the ED and found her to be having acute congestive heart failure based on chest x-ray and with activity she became hypoxic unable to mobilize. Initial work-up negative for sepsis or respiratory infections. 11/11 Patient was admitted overnight and started on IV diuretics Patient had more than 3 L negative urine output Patient is feeling slightly better Monitor urine output and renal panel telemetry monitoring electrolytes unremarkable Continuing IV Lasix Increase patient activities using her walker ? Constitutional Constitutional: Present fatigue, lethargy, snoring and weakness; Absent chills, excessive sweating and frequent falls EENT Eyes: Absent blind spots, decreased night vision, discharge, dry eye, floaters and irritation Ears: Absent as per HPI, decreased hearing, ear pain and tinnitus Nose, mouth and throat: Absent change in voice, dizziness, epistaxis and hea dache(s) Cardiovascular Cardiovascular: Present chest pain with activity, edema, leg edema, orthopnea and pedal edema; Absent diaphoresis, irregular heart rhythm, palpatations and syncope Respiratory Respiratory: Present dyspnea, dyspnea on exertion and snoring; Absent hemoptysis, pain on inspirtation and chest congestion Gastrointestinal Gastrointestinal: Absent change in bowel habits, constipation, dyspepsia and excessive flatus Genitourinary Genitourinary: Present nipple discharge; Absent difficulty voiding, dysuria, genital pruritis and post void dribbling Musculoskeletal Musculoskeletal: Present abnormal gait, back pain and muscle weakness Neurological Neurological: Absent memory loss, radicular pain, syncope and vertigo Endocrine Endocrine: Absent deeping of the voice, flushing and palpitations Hematologic/Lymphatic Constitutional Vitals: Vital Signs Temp Pulse Resp BP Pulse Ox 98.1 F 76 17 123/78 93 11/12/19 08:47 11/12/19 08:47 11/12/19 10:01 11/12/19 10:01 11/12/19 10:01 Period Temp Pulse Resp BP Sys/[place] Pulse Ox Last 24 Hr 97.6 F-98.1 F 68-93 11-33 105-162/66-97 90-99 Intake and Output 11/11/19 11/12/19 11/12/19 21:59 05:59 13:59 Intake Total 100 420 730 Output Total 3500 250 1425 Balance -3400 170 -695 Weight 147 lb 11.2 oz 148 lb 3.2 oz Patient Weight 11/13/19 05:59 Weight 148 lb 3.2 oz Intake & Output: Intake & Output 11/11/19 11/12/19 11/12/19 21:59 05:59 13:59 Intake Total 100 420 730 Output Total 3500 250 1425 Balance -3400 170 -695 Weight 147 lb 11.2 oz 148 lb 3.2 oz Intake: Oral 100 420 730 Output: Urine Catheter Amount 275 250 Void Amount 3225 250 1175 Other: Meal Breakfast Percent of Meal Consumed 100% Feeding Ability Independent Urine Appearance Clear Clear Clear Urine Color Pale Bright Yellow Pale Urine Odor Normal Strong Strong # Bowel Movements 0 General appearance: cooperative, mild distress and obese Head Head exam: Present atraumatic, normal inspection and normocephalic Eye Eye exam: Present EOMI; Absent periorbital swelling and scleral icterus ENT ENT exam: Present normal exam and normal oropharynx Neck Neck exam: Absent lymphadenopathy and tenderness Respiratory Respiratory exam: Present accessory muscle use, rales and respiratory distress Cardiovascular Cardiovascular exam: Present diastolic murmur, +S3 and systolic murmur; Absent +S4 GI/Abdominal GI/Abdominal exam: Present normal bowel sounds, soft and distended Neurological Exam Neurological exam: Present alert, oriented X3 and reflexes normal; Absent motor sensory deficit Psychiatric Psychiatric exam: Absent agitated, anxious and depressed OBJ DATA Labs CBC & Chem 7: 11/12/19 02:20 11/12/19 02:20 Labs: Abnormal Lab Results 11/12/19 11/11/19 11/11/19 02:20 12:45 11:40 Hgb 9.4 L Hct 30.4 L POC Hct 33.0 L MCV 78.6 L MCH 24.3 L MCHC 30.9 L RDW 16.0 H Glucose 110 H POC Glucose 109 H NT-Pro-B Natriuret Pep 5323.0 H Urine Protein 30 A Urine Nitrate Pos A Ur Leukocyte Esterase 75 A Urine WBC 24 H Urine Bacteria Few A 11/11/19 11:40 Hgb 10.1 L Hct 32.4 L POC Hct MCV 77.7 L MCH 24.2 L MCHC RDW 16.1 H Glucose POC Glucose NT-Pro-B Natriuret Pep Urine Protein Urine Nitrate Ur Leukocyte Esterase Urine WBC Urine Bacteria Meds: Medications Acetaminophen (Tylenol) 650 mg PO Q6HP PRN; Protocol PRN Reason: Per Pain Protocol/Fever > 101 Last Admin: 11/12/19 06:52 Dose: 650 mg Documented by: Hydrocodone Bitart/Acetaminophen (Carroll 5/325mg) 1 tab PO TID [facility]; Protocol Last Admin: 11/12/19 08:50 Dose: 1 tab Documented by: Dextrose (Dextrose 50%) 0 ml IV UD PRN PRN Reason: Hypoglycemia Diagnostic Test (Pha) (Accu-Chek) 1 each FS [facility] Digoxin (Lanoxin) 125 mcg PO DAILY@1400 [facility] Docusate Sodium (Colace) 100 mg PO BID [facility] Last Admin: 11/12/19 09:02 Dose: 100 mg Documented by: Furosemide (Lasix) 40 mg IV BIDD [facility] Last Admin: 11/12/19 09:04 Dose: 40 mg Documented by: Heparin Sodium (Porcine) (Heparin) 5,000 unit SQ Q12 [facility] Last Admin: 11/12/19 09:04 Dose: 5,000 unit Documented by: Ceftriaxone Sodium 2 gm/ (Dextrose) 50 mls @ 100 mls/hr IV Q24H [facility]; Protocol Last Admin: 11/12/19 11:38 Dose: 100 mls/hr Documented by: Insulin Human Lispro (Humalog) 0 unit SQ [facility]; Protocol Lactulose (Cephulac) 10 gm PO DAILYP PRN PRN Reason: Constipation Levothyroxine Sodium (Synthroid) 75 mcg PO QDAY [facility] Last Admin: 11/12/19 07:24 Dose: 75 mcg Documented by: Losartan Potassium (Cozaar) 100 mg PO QDAY [facility] Last Admin: 11/12/19 09:02 Dose: 100 mg Documented by: Melatonin (Melatonin 3mg Tablet) 6 mg PO HS PRN PRN Reason: Sleep Ondansetron HCl (Zofran) 4 mg IV Q4HP PRN; Protocol PRN Reason: Nausea And Vomiting Last Admin: 11/12/19 02:45 Dose: 4 mg Documented by: Pantoprazole Sodium (Protonix) 40 mg PO QAMAC [facility] Last Admin: 11/12/19 07:00 Dose: 40 mg Documented by: Potassium Chloride (Kdur) 10 meq PO QDAY [facility] Last Admin: 11/12/19 08:50 Dose: 10 meq Documented by: Raloxifene HCl (Evista) 60 mg PO QDAY [facility] Last Admin: 11/12/19 09:04 Dose: 60 mg Documented by: Ropinirole HCl (Requip) 0.5 mg PO [facility] Last Admin: 11/11/19 21:58 Dose: 0.5 mg Documented by: Senna (Senokot) 2 tab PO HSP PRN PRN Reason: Constipation Simvastatin (Zocor) 20 mg PO QDAY [facility] Last Admin: 11/12/19 09:03 Dose: 20 mg Documented by: Sodium Chloride (Saline Flush) 10 ml IV Q8 [facility] Last Admin: 11/12/19 12:16 Dose: 10 ml Documented by: Trazodone HCl (Desyrel) 50 mg PO QHS PRN PRN Reason: Insomnia A/P Narrative A/P Narrative: Narrative: Acute congestive heart failure Probable right-sided heart failure Probable due to valvular heart disease Echocardiogram in April 2019 showed evidence of moderate mitral regurgitation , moderate tricuspid regurgitation and pulmonary hypertension Worsening lower extremity edema no significant hypoxia Patient was on hydrochlorothiazide and furosemide proBNP was elevated No evidence of renal failure Troponin x3 and remained negative Plan Patient unable to mobilize and with activity she became hypoxic and short of breath She is volume dependent so we will do gentle diuresis Started on IV Lasix 40 twice daily-continue Monitor urine output and creatinine and electrolytes and telemetry monitoring Echocardiogram done and results pending Trend the troponin Type 2 diabetes He was on metformin and we will hold the metformin Sliding scale insulin Spinal scoliosis Chronic pain status post surgery Continue her home pain medications Essential hypertension We will continue her home medications Once her blood pressure Losartan 100 mg continue History of breast cancer Continued raloxifene Hyperlipidemia Continued simvastatin Insomnia Continue trazodone and melatonin DVT prophylaxis-subcu heparin CODE [id number] with the patient Time Spent With Patient Time: Total time spent is greater than 50% in coordination of care (as documented) at patient's floor/unit and/or counseling patient: QUALITY Stroke Symptom Onset Unknown: No VTE Deep Vein Thrombosis/Pulmonary Embolism Present on Admission: No
[2019-11-12] MEDS: DIGOXIN 125 MCG TABLET PO SCH (14:25)
[2019-11-12 14:57] LABS: ALT/SGPT 6 U/l (0-40); AST/SGOT 18 U/l (0-37); Albumin/Globulin Ratio 1.7 (1.0-2.3); Alkaline Phosphatase 68 U/L (39-117); Bilirubin,Total 0.5 mg/dL (0.0-1.0); Blood Urea Nitrogen 13 mg/dl (8-23); Carbon Dioxide 28 mmol/L (22-30); Chloride 94 mmol/L (96-108); Globulin 2.4 gm/dL (2.2-3.7); Glomerular Filtration Rate 51; Glucose 137 mg/dL (70-105)
[2019-11-12 15:05] LABS: Calcium 8.6 mg/dl (8.6-10.4)
[2019-11-12] MEDS: INSULIN LISPRO 1 UNIT/0.01 ML UNIT SQ SCH ×2 (16:36→20:17)
[2019-11-12] MEDS: rOPINIRole 0.25 MG TABLET PO SCH (20:18)
[2019-11-12] MEDS: MELATONIN 3 MG TABLET PO PRN (20:20)
[2019-11-13] MEDS: 0.9 % SODIUM CHLORIDE 10 ML SYRINGE IV SCH ×5 (05:10→20:28)
[2019-11-13] MEDS: ACETAMINOPHEN 325 MG TABLET PO PRN (05:10)
[2019-11-13] MEDS: PANTOPRAZOLE 40 MG TABLET PO SCH (07:01)
[2019-11-13] MEDS: LEVOTHYROXINE 75 MCG TABLET PO SCH (07:01)
[2019-11-13 07:02] LABS: Basophils # (Auto) 0.03 K/mcL (0.00-0.30); Basophils % (Auto) 0.4 % (0.0-2.0); Eosinophils # (Auto) 0.15 K/mcL (0.00-0.70); Eosinophils % (Auto) 1.8 % (0.0-7.0); Granulocytes % (Auto) 65.2 % (38.0-78.0); Hemoglobin 10.5 g/dL (11.2-15.7); Lymphocytes # (Auto) 2.07 K/mcL (1.50-4.80); Lymphocytes % (Auto) 25.2 % (15.5-49.0); Mean Cell Volume 80.8 fL (80.0-100.0); Monocytes # (Auto) 0.61 K/mcL (0.10-0.90); Monocytes % (Auto) 7.4 % (1.0-12.0); Platelet Count 289 K/mcL (140-440); RBC 4.33 M/mcL (3.59-5.38); Red Cell Distribution Width 16.3 % (11.5-14.5); WBC 8.2 K/mcL (4.50-11.00)
[2019-11-13] MEDS: INSULIN LISPRO 1 UNIT/0.01 ML UNIT SQ SCH ×4 (07:05→20:28)
[2019-11-13 07:13] LABS: Chloride 96 mmol/L (96-108)
[2019-11-13 07:15] LABS: ALT/SGPT 8 U/l (0-40); AST/SGOT 22 U/l (0-37); Albumin 3.9 gm/dL (3.2-5.2); Albumin/Globulin Ratio 1.5 (1.0-2.3); Alkaline Phosphatase 64 U/L (39-117); Bilirubin,Total 0.4 mg/dL (0.0-1.0); Blood Urea Nitrogen 13 mg/dl (8-23); Calcium 8.6 mg/dl (8.6-10.4); Carbon Dioxide 26 mmol/L (22-30); Globulin 2.6 gm/dL (2.2-3.7); Glomerular Filtration Rate 45; Glucose 102 mg/dL (70-105)
[2019-11-13] MEDS: FUROSEMIDE 40 MG/4 ML VIAL IV SCH ×2 (09:01→17:21)
[2019-11-13] MEDS: POTASSIUM CHLORIDE 10 MEQ TABLET PO SCH (09:02)
[2019-11-13] MEDS: SIMVASTATIN 20 MG TABLET PO SCH (09:02)
[2019-11-13] MEDS: HYDROcodone/APAP 5/325MG TABLET PO SCH ×3 (09:02→20:27)
[2019-11-13] MEDS: LOSARTAN 50 MG TABLET PO SCH (09:02)
[2019-11-13] MEDS: HEPARIN 5,000 UNIT/ML VIAL SQ SCH ×2 (09:02→20:26)
[2019-11-13] MEDS: RALOXIFENE HCL 60 MG TABLET PO SCH (09:02)
[2019-11-13] MEDS: DOCUSATE SODIUM 100 MG CAPSULE PO SCH ×2 (09:02→20:26)
[2019-11-13] MEDS: cefTRIAXone 2 GM in DEXTROSE 5% IN WATER 50 ML IV SCH (09:03)
[2019-11-13] MEDS: DIGOXIN 125 MCG TABLET PO SCH (14:24)
[2019-11-13 16:29] LABS: ALT/SGPT 6 U/l (0-40); AST/SGOT 15 U/l (0-37); Albumin 3.9 gm/dL (3.2-5.2); Albumin/Globulin Ratio 1.4 (1.0-2.3); Alkaline Phosphatase 57 U/L (39-117); Bilirubin,Total 0.3 mg/dL (0.0-1.0); Blood Urea Nitrogen 13 mg/dl (8-23); Calcium 8.5 mg/dl (8.6-10.4); Carbon Dioxide 31 mmol/L (22-30); Globulin 2.7 gm/dL (2.2-3.7); Glomerular Filtration Rate 57; Glucose 83 mg/dL (70-105)
[2019-11-13 16:33] LABS: Chloride 92 mmol/L (96-108)
[2019-11-13] MEDS: MELATONIN 3 MG TABLET PO PRN (20:27)
[2019-11-13] MEDS: QUEtiapine 25 MG TABLET PO SCH (20:28)
[2019-11-13] MEDS: rOPINIRole 0.25 MG TABLET PO SCH (20:28)
--- NOTE | 2019-11-13 22:39 | Internal Med Progress Note ---
SUBJECTIVE Subjective Patient information: Note initiated : 11/13/19 at 10:37 pm Service Date, if different from initiated Date: [] Patient: Zeinab Funez 89 y/o F admitted on 11/11/19 for Shortness of breath. Chief Complaint: [] This is a 89-year-old female with a history of spinal scoliosis status post surgery and chronic pain, history of type 2 diabetes, essential hypertension, hyperlipidemia, hypothyroidism was brought to the ED because of worsening tiredness, shortness of breath with activities and worsening bilateral leg swelling. Patient recently diagnosed with a mitral regurgitation and tricuspid regurgitation which was incidental and since then patient have activities limite d and shortness of breath was a major issue which has been progressively worse over the last 2 weeks and her leg swelling has been worsening. Patient takes hydrochlorothiazide and Lasix p.o. without any improvement. Patient was evaluated in the ED and found her to be having acute congestive heart failure based on chest x-ray and with activity she became hypoxic unable to mobilize. Initial work-up negative for sepsis or respiratory infections. 11/11 Patient was admitted overnight and started on IV diuretics Patient had more than 3 L negative urine output Patient is feeling slightly better Monitor urine output and renal panel telemetry monitoring electrolytes unremarkable Continuing IV Lasix Increase patient activities using her walker ? Review of system General-mild distress no fever no chills no dizziness Head and neck-no headache no facial drooping, no decreased vision, Respiratory-no cough, shortness of breath with activities Cardiac-shortness of breath with activities present, bilateral leg edema, no palpitations, Abdomen-distended but nontender, no diarrhea no constipation Neuro-no focal neuro deficit, no seizure, no headache Psychiatry-no anxiety no depression no mood changes Interval history: Narrative: Constitutional Vitals: Vital Signs Temp Pulse Resp BP Pulse Ox 98.0 F 73 18 117/68 99 11/13/19 16:00 11/13/19 18:25 11/13/19 18:00 11/13/19 18:00 11/13/19 18:25 Period Temp Pulse Resp BP Sys/[place] Pulse Ox Last 24 Hr 97.3 F-98.0 F 63-87 16-18 92-130/66-99 85-100 Intake and Output 11/13/19 11/13/19 11/14/19 13:59 21:59 05:59 Intake Total 290 240 Output Total 675 625 Balance -385 385 Intake & Output: Intake & Output 11/13/19 11/13/19 11/14/19 13:59 21:59 05:59 Intake Total 290 240 Output Total 675 625 Balance -385 -385 Intake: IV 50 Rocephin 2 gm In Dextrose 5% in 50 Water 50 ml @ 100 mls/hr IV Q24H [facility] Rx#:[id number] Oral 240 240 Output: Void Amount 675 625 Other: Meal Breakfast Percent of Meal Consumed 100% Feeding Ability Independent Urine Appearance Clear Urine Color Pale Stool Size Large Smear Stool Color Brown Stool Consistency Soft # Voids 1 # Bowel Movements 1 General appearance: mild distress and obese Head Head exam: Present atraumatic and normal inspection Eye Eye exam: Present EOMI; Absent nystagmus, periorbital swelling and scleral icterus Pupils: Present normal accommodation; Absent irregular ENT ENT exam: Present normal exam and normal external ear exam Neck Neck exam: Absent lymphadenopathy, tenderness and thyromegaly Respiratory Respiratory exam: Present rales; Absent accessory muscle use, respiratory distress and wheezes Cardiovascular Cardiovascular exam: Present diastolic murmur, +S3 and systolic murmur; Absent JVD GI/Abdominal GI/Abdominal exam: Present normal bowel sounds and distended; Absent guarding and tenderness Extremities Exam Extremities exam: Present pedal edema; Absent joint swelling and normal inspection Neurological Exam Neurological exam: Present alert, oriented X3 and reflexes normal; Absent motor sensory deficit Psychiatric Psychiatric exam: Absent agitated, anxious, depressed, manic and suicidal ideation OBJ DATA Labs CBC & Chem 7: 11/13/19 05:20 11/13/19 14:07 Labs: Abnormal Lab Results 11/13/19 11/13/19 11/12/19 14:07 05:20 14:07 Hgb 10.5 L Hct POC Hct MCV MCH 24.2 L MCHC 30.0 L RDW 16.3 H Chloride 92 L 94 L Carbon Dioxide 31 H Glucose 137 H POC Glucose Calcium 8.5 L NT-Pro-B Natriuret Pep Urine Protein Urine Nitrate Ur Leukocyte Esterase Urine WBC Urine Bacteria 11/12/19 11/11/19 11/11/19 02:20 12:45 11:40 Hgb 9.4 L Hct 30.4 L POC Hct 33.0 L MCV 78.6 L MCH 24.3 L MCHC 30.9 L RDW 16.0 H Chloride Carbon Dioxide Glucose 110 H POC Glucose 109 H Calcium NT-Pro-B Natriuret Pep 5323.0 H Urine Protein 30 A Urine Nitrate Pos A Ur Leukocyte Esterase 75 A Urine WBC 24 H Urine Bacteria Few A 11/11/19 11:40 Hgb 10.1 L Hct 32.4 L POC Hct MCV 77.7 L MCH 24.2 L MCHC RDW 16.1 H Chloride Carbon Dioxide Glucose POC Glucose Calcium NT-Pro-B Natriuret Pep Urine Protein Urine Nitrate Ur Leukocyte Esterase Urine WBC Urine Bacteria Meds: Medications Acetaminophen (Tylenol) 650 mg PO Q6HP PRN; Protocol PRN Reason: Per Pain Protocol/Fever > 101 Last Admin: 11/13/19 05:10 Dose: 650 mg Documented by: Hydrocodone Bitart/Acetaminophen ([place] 5/325mg) 1 tab PO TID [facility]; Protocol Last Admin: 11/13/19 20:27 Dose: 1 tab Documented by: Dextrose (Dextrose 50%) 0 ml IV UD PRN PRN Reason: Hypoglycemia Diagnostic Test (Pha) (Accu-Chek) 1 each FS [facility] Last Admin: 11/13/19 20:26 Dose: 1 each Documented by: Digoxin (Lanoxin) 125 mcg PO DAILY@1400 [facility] Last Admin: 11/13/19 14:24 Dose: 125 mcg Documented by: Docusate Sodium (Colace) 100 mg PO BID [facility] Last Admin: 11/13/19 20:26 Dose: Not Given Documented by: Furosemide (Lasix) 40 mg IV BIDD [facility] Last Admin: 11/13/19 17:21 Dose: 40 mg Documented by: Glucose (Insta-Glucose) 15 gm PO PRN PRN PRN Reason: Hypoglycemia Heparin Sodium (Porcine) (Heparin) 5,000 unit SQ Q12 [facility] Last Admin: 11/13/19 20:26 Dose: 5,000 unit Documented by: Ceftriaxone Sodium 2 gm/ (Dextrose) 50 mls @ 100 mls/hr IV Q24H [facility]; Protocol Last Infusion: 11/13/19 09:33 Dose: Infused Documented by: Insulin Human Lispro (Humalog) 0 unit SQ [facility]; Protocol Last Admin: 11/13/19 20:28 Dose: Not Given Documented by: Lactulose (Cephulac) 10 gm PO DAILYP PRN PRN Reason: Constipation Levothyroxine Sodium (Synthroid) 75 mcg PO QDAY [facility] Last Admin: 11/13/19 07:01 Dose: 75 mcg Documented by: Losartan Potassium (Cozaar) 100 mg PO QDAY [facility] Last Admin: 11/13/19 09:02 Dose: 100 mg Documented by: Melatonin (Melatonin 3mg Tablet) 6 mg PO HS PRN PRN Reason: Sleep Last Admin: 11/13/19 20:27 Dose: 6 mg Documented by: Ondansetron HCl (Zofran) 4 mg IV Q4HP PRN; Protocol PRN Reason: Nausea And Vomiting Last Admin: 11/12/19 02:45 Dose: 4 mg Documented by: Pantoprazole Sodium (Protonix) 40 mg PO QAMAC [facility] Last Admin: 11/13/19 07:01 Dose: 40 mg Documented by: Potassium Chloride (Kdur) 10 meq PO QDAY [facility] Last Admin: 11/13/19 09:02 Dose: 10 meq Documented by: Quetiapine Fumarate (Seroquel) 25 mg PO [facility] Last Admin: 11/13/19 20:28 Dose: 25 mg Documented by: Raloxifene HCl (Evista) 60 mg PO QDAY [facility] Last Admin: 11/13/19 09:02 Dose: 60 mg Documented by: Ropinirole HCl (Requip) 0.5 mg PO [facility] Last Admin: 11/13/19 20:28 Dose: 0.5 mg Documented by: Senna (Senokot) 2 tab PO HSP PRN PRN Reason: Constipation Simvastatin (Zocor) 20 mg PO QDAY [facility] Last Admin: 11/13/19 09:02 Dose: 20 mg Documented by: Sodium Chloride (Saline Flush) 10 ml IV Q8 [facility] Last Admin: 11/13/19 20:28 Dose: 10 ml Documented by: A/P Narrative A/P Narrative: Narrative: Acute congestive heart failure Probable right-sided heart failure Probable due to valvular heart disease Echocardiogram in April 2019 showed evidence of moderate mitral regurgitation, moderate tricuspid regurgitation and pulmonary hypertension Worsening lower extremity edema no significant hypoxia Patient was on hydrochlorothiazide and furosemide proBNP was elevated No evidence of renal failure Troponin x3 and remained negative Plan Patient unable to mobilize and with activity she became hypoxic and short of breath She is volume dependent so we will do gentle diuresis Started on IV Lasix 40 twice daily-continue Planning to change to p.o. Lasix tomorrow Monitor urine output and creatinine and electrolytes and telemetry monitoring Echocardiogram done and results pending Troponin trend was negative Type 2 diabetes He was on metformin and we will hold the metformin Sliding scale insulin Spinal scoliosis Chronic pain status post surgery Continue her home pain medications Essential hypertension We will continue her home medications Once her blood pressure Losartan 100 mg continue Nausea probably due to narcotics Ordered Zofran GI cocktail Pantoprazole History of breast cancer Continued raloxifene Hyperlipidemia Continued simvastatin Insomnia Continue trazodone and melatonin DVT prophylaxis-subcu heparin CODE [id number] with the patient Time Spent With Patient Time: Total time spent is greater than 50% in coordination of care (as documented) at patient's floor/unit and/or counseling patient: QUALITY Stroke Symptom Onset Unknown: No VTE Deep Vein Thrombosis/Pulmonary Embolism Present on Admission: No
[2019-11-14] MEDS: 0.9 % SODIUM CHLORIDE 10 ML SYRINGE IV SCH ×6 (05:25→20:25)
[2019-11-14 05:54] LABS: Basophils # (Auto) 0.04 K/mcL (0.00-0.30); Basophils % (Auto) 0.6 % (0.0-2.0); Eosinophils # (Auto) 0.24 K/mcL (0.00-0.70); Eosinophils % (Auto) 3.4 % (0.0-7.0); Granulocytes % (Auto) 51.6 % (38.0-78.0); Hematocrit 32.5 % (34.1-44.9); Hemoglobin 9.3 g/dL (11.2-15.7); Lymphocytes # (Auto) 2.63 K/mcL (1.50-4.80); Lymphocytes % (Auto) 36.7 % (15.5-49.0); Mean Cell Volume 82.7 fL (80.0-100.0); Mean Corpuscular HGB Conc 28.6 g/dL (31.0-36.0); Mean Platelet Volume 9.3 fL (7.4-10.4); Monocytes # (Auto) 0.55 K/mcL (0.10-0.90); Monocytes % (Auto) 7.7 % (1.0-12.0); Platelet Count 243 K/mcL (140-440); RBC 3.93 M/mcL (3.59-5.38); Red Cell Distribution Width 16.1 % (11.5-14.5); WBC 7.2 K/mcL (4.50-11.00)
[2019-11-14 06:13] LABS: Chloride 97 mmol/L (96-108)
[2019-11-14 06:17] LABS: ALT/SGPT < 5 U/l (0-40); AST/SGOT 12 U/l (0-37); Albumin 3.4 gm/dL (3.2-5.2); Albumin/Globulin Ratio 1.5 (1.0-2.3); Alkaline Phosphatase 56 U/L (39-117); Bilirubin,Total 0.3 mg/dL (0.0-1.0); Blood Urea Nitrogen 13 mg/dl (8-23); Calcium 8.1 mg/dl (8.6-10.4); Carbon Dioxide 28 mmol/L (22-30); Globulin 2.3 gm/dL (2.2-3.7); Glomerular Filtration Rate 45; Glucose 96 mg/dL (70-105)
[2019-11-14] MEDS: LEVOTHYROXINE 75 MCG TABLET PO SCH (07:57)
[2019-11-14] MEDS: PANTOPRAZOLE 40 MG TABLET PO SCH (07:57)
[2019-11-14] MEDS: INSULIN LISPRO 1 UNIT/0.01 ML UNIT SQ SCH ×4 (08:01→20:19)
[2019-11-14] MEDS: FUROSEMIDE 40 MG/4 ML VIAL IV SCH (08:04)
[2019-11-14] MEDS: LOSARTAN 50 MG TABLET PO SCH (09:11)
[2019-11-14] MEDS: POTASSIUM CHLORIDE 10 MEQ TABLET PO SCH (09:11)
[2019-11-14] MEDS: SIMVASTATIN 20 MG TABLET PO SCH (09:11)
[2019-11-14] MEDS: HYDROcodone/APAP 5/325MG TABLET PO SCH ×3 (09:12→20:20)
[2019-11-14] MEDS: HEPARIN 5,000 UNIT/ML VIAL SQ SCH ×2 (09:12→20:18)
[2019-11-14] MEDS: cefTRIAXone 2 GM in DEXTROSE 5% IN WATER 50 ML IV SCH (09:13)
[2019-11-14] MEDS: DOCUSATE SODIUM 100 MG CAPSULE PO SCH ×2 (09:14→20:19)
[2019-11-14] MEDS: POTASSIUM CHLORIDE 20 MEQ TABLET PO SCH ×2 (09:18→17:34)
[2019-11-14] MEDS: RALOXIFENE HCL 60 MG TABLET PO SCH (09:23)
[2019-11-14] MEDS: DIGOXIN 125 MCG TABLET PO SCH (14:39)
[2019-11-14] MEDS: FUROSEMIDE 40 MG TABLET PO SCH (16:45)
[2019-11-14 17:11] LABS: ALT/SGPT 7 U/l (0-40); AST/SGOT 16 U/l (0-37); Albumin 4.1 gm/dL (3.2-5.2); Albumin/Globulin Ratio 1.5 (1.0-2.3); Alkaline Phosphatase 60 U/L (39-117); Bilirubin,Total 0.3 mg/dL (0.0-1.0); Blood Urea Nitrogen 13 mg/dl (8-23); Calcium 8.8 mg/dl (8.6-10.4); Carbon Dioxide 30 mmol/L (22-30); Globulin 2.7 gm/dL (2.2-3.7); Glomerular Filtration Rate 45; Glucose 108 mg/dL (70-105)
[2019-11-14 17:12] LABS: Chloride 93 mmol/L (96-108)
[2019-11-14] MEDS: rOPINIRole 0.25 MG TABLET PO SCH (20:20)
[2019-11-14] MEDS: QUEtiapine 25 MG TABLET PO SCH (20:25)
[2019-11-14] MEDS: MELATONIN 3 MG TABLET PO PRN (20:25)
--- NOTE | 2019-11-14 21:57 | Internal Med Progress Note ---
SUBJECTIVE Subjective Patient information: Note initiated : 11/14/19 at 9:55 pm Service Date, if different from initiated Date: [] Patient: Zeinab Funez 89 y/o F admitted on 11/11/19 for Shortness of breath. Chief Complaint: This is a 89-year-old female with a history of spinal scoliosis status post surgery and chronic pain, history of type 2 diabetes, essential hypertension, hyperlipidemia, hypothyroidism was brought to the ED because of worsening tiredness, shortness of breath with activities and worsening bilateral leg swelling. Patient recently diagnosed with a mitral regurgitation and tricuspid regurgitation which was incidental and since then patient have activities limited and shortness of breath was a major issue which has been progressively worse over the last 2 weeks and her leg swelling has been worsening. Patient takes hydrochlorothiazide and Lasix p.o. without any improvement. Patient was evaluated in the ED and found her to be having acute congestive heart failure based on chest x-ray and with activity she became hypoxic unable to mobilize. Initial work-up negative for sepsis or respiratory infections. 11/11 Patient was admitted overnight and started on IV diuretics Patient had more than 3 L negative urine output Patient is feeling slightly better Monitor urine output and renal panel telemetry monitoring electrolytes unremarkable Continuing IV Lasix Increase patient activities using her walker 11/13 Echocardiogram showed moderate mitral regurgitation, moderate tricuspid regurgitation moderate aortic insufficiency Ejection fraction normal Diastolic dysfunction Patient continues to feel better Physical therapy evaluated and recommended patient would benefit from rehab Case management involved in looking for rehab options ? Review of system General-mild distress no fever no chills no dizziness Head and neck-no headache no facial drooping, no decreased vision, Respiratory-no cough, shortness of breath with activities Cardiac-shortness of breath with activities present, bilateral leg edema, no palpitations, Abdomen-distended but nontender, no diarrhea no constipation Neuro-no focal neuro deficit, no seizure, no headache Psychiatry-no anxiety no depression no mood changes Interval history: Narrative: Constitutional Vitals: Vital Signs Temp Pulse Resp BP Pulse Ox 97.4 F 73 20 113/59 99 11/14/19 16:01 11/13/19 18:25 11/14/19 18:01 11/14/19 18:01 11/14/19 18:01 Period Temp Pulse Resp BP Sys/[place] Pulse Ox Last 24 Hr 97.2 F-98.3 F - 93-136/50-89 83-99 Intake and Output 11/14/19 11/14/19 11/14/19 05:59 13:59 21:59 Intake Total 690 820 Output Total 0 1150 250 Balance 0 -460 570 Weight 141 lb 4.8 oz Patient Weight 11/15/19 05:59 Weight 141 lb 4.8 oz Intake & Output: Intake & Output 11/14/19 11/14/19 11/14/19 05:59 13:59 21:59 Intake Total 690 820 Output Total 0 1150 250 Balance 0 -460 570 Weight 141 lb 4.8 oz Intake: IV 50 Rocephin 2 gm In Dextrose 5% in 50 Water 50 ml @ 100 mls/hr IV Q24H [facility] Rx#:[id number] Oral 640 820 Output: Void Amount 0 775 Urine/Stool Mix 375 250 Other: Meal Lunch Dinner Percent of Meal Consumed 50% 100% Feeding Ability Independent Urine Color Dark Yellow Stool Size Small Stool Color Brown Stool Consistency Loose General appearance: mild distress and obese Head Head exam: Present atraumatic, normal inspection and normocephalic Eye Eye exam: Absent nystagmus, periorbital swelling and scleral icterus ENT ENT exam: Present mucous membranes moist and normal oropharynx Respiratory Respiratory exam: Present rales; Absent accessory muscle use, respiratory distress and wheezes Cardiovascular Cardiovascular exam: Present diastolic murmur and systolic murmur; Absent JVD and +S3 GI/Abdominal GI/Abdominal exam: Present normal bowel sounds, soft and distended Neurological Exam Neurological exam: Present alert, oriented X3 and reflexes normal; Absent motor sensory deficit Psychiatric Psychiatric exam: Absent agitated, anxious and depressed OBJ DATA Labs CBC & Chem 7: 11/14/19 05:00 11/14/19 14:15 Labs: Abnormal Lab Results 11/14/19 11/14/19 11/14/19 14:15 05:00 05:00 Hgb 9.3 L Hct 32.5 L MCV MCH 23.7 L MCHC 28.6 L RDW 16.1 H Chloride 93 L Carbon Dioxide Glucose 108 H Calcium 8.1 L Total Protein 5.7 L 11/13/19 11/13/19 11/12/19 14:07 05:20 14:07 Hgb 10.5 L Hct MCV MCH 24.2 L MCHC 30.0 L RDW 16.3 H Chloride 92 L 94 L Carbon Dioxide 31 H Glucose 137 H Calcium 8.5 L Total Protein 11/12/19 02:20 Hgb 9.4 L Hct 30.4 L MCV 78.6 L MCH 24.3 L MCHC 30.9 L RDW 16.0 H Chloride Carbon Dioxide Glucose Calcium Total Protein Meds: Medications Acetaminophen (Tylenol) 650 mg PO Q6HP PRN; Protocol PRN Reason: Per Pain Protocol/Fever > 101 Last Admin: 11/13/19 05:10 Dose: 650 mg Documented by: Hydrocodone Bitart/Acetaminophen ([place] 5/325mg) 1 tab PO TID [facility]; Protocol Last Admin: 11/14/19 20:20 Dose: 1 tab Documented by: Dextrose (Dextrose 50%) 0 ml IV UD PRN PRN Reason: Hypoglycemia Diagnostic Test (Pha) (Accu-Chek) 1 each FS [facility] Last Admin: 11/14/19 20:18 Dose: 1 each Documented by: Digoxin (Lanoxin) 125 mcg PO DAILY@1400 [facility] Last Admin: 11/14/19 14:39 Dose: 125 mcg Documented by: Docusate Sodium (Colace) 100 mg PO BID [facility] Last Admin: 11/14/19 20:19 Dose: Not Given Documented by: Furosemide (Lasix) 40 mg PO BIDD [facility] Last Admin: 11/14/19 16:45 Dose: 40 mg Documented by: Glucose (Insta-Glucose) 15 gm PO PRN PRN PRN Reason: Hypoglycemia Heparin Sodium (Porcine) (Heparin) 5,000 unit SQ Q12 [facility] Last Admin: 11/14/19 20:18 Dose: 5,000 unit Documented by: Ceftriaxone Sodium 2 gm/ (Dextrose) 50 mls @ 100 mls/hr IV Q24H [facility]; Protocol Last Infusion: 11/14/19 10:11 Dose: Infused Documented by: Insulin Human Lispro (Humalog) 0 unit SQ [facility]; Protocol Last Admin: 11/14/19 20:19 Dose: Not Given Documented by: Lactulose (Cephulac) 10 gm PO DAILYP PRN PRN Reason: Constipation Levothyroxine Sodium (Synthroid) 75 mcg PO QDAY [facility] Last Admin: 11/14/19 07:57 Dose: 75 mcg Documented by: Losartan Potassium (Cozaar) 100 mg PO QDAY [facility] Last Admin: 11/14/19 09:11 Dose: 100 mg Documented by: Melatonin (Melatonin 3mg Tablet) 6 mg PO HS PRN PRN Reason: Sleep Last Admin: 11/14/19 20:25 Dose: 6 mg Documented by: Ondansetron HCl (Zofran) 4 mg IV Q4HP PRN; Protocol PRN Reason: Nausea And Vomiting Last Admin: 11/12/19 02:45 Dose: 4 mg Documented by: Pantoprazole Sodium (Protonix) 40 mg PO QAMAC [facility] Last Admin: 11/14/19 07:57 Dose: 40 mg Documented by: Potassium Chloride (Kdur) 20 meq PO BIDCC [facility] Stop: 11/15/19 17:31 Last Admin: 11/14/19 17:34 Dose: 20 meq Documented by: Quetiapine Fumarate (Seroquel) 25 mg PO [facility] Last Admin: 11/14/19 20:25 Dose: 25 mg Documented by: Raloxifene HCl (Evista) 60 mg PO QDAY [facility] Last Admin: 11/14/19 09:23 Dose: 60 mg Documented by: Ropinirole HCl (Requip) 0.5 mg PO [facility] Last Admin: 11/14/19 20:20 Dose: 0.5 mg Documented by: Senna (Senokot) 2 tab PO HSP PRN PRN Reason: Constipation Simvastatin (Zocor) 20 mg PO QDAY [facility] Last Admin: 11/14/19 09:11 Dose: 20 mg Documented by: Sodium Chloride (Saline Flush) 10 ml IV Q8 [facility] Last Admin: 11/14/19 20:25 Dose: 10 ml Documented by: A/P Narrative A/P Narrative: Narrative: ? Acute congestive heart failure Probable right-sided heart failure Probable due to valvular heart disease Echocardiogram in April 2019 showed evidence of moderate mitral regurgitation, moderate tricuspid regurgitation and pulmonary hypertension Worsening lower extremity edema no significant hypoxia Patient was on hydrochlorothiazide and furosemide proBNP was elevated No evidence of renal failure Troponin x3 and remained negative Plan Patient unable to mobilize and with activity she became hypoxic and short of breath She is volume dependent so we will do gentle diuresis Started on IV Lasix 40 twice daily-continue Lasix changed to p.o. 40 twice daily and patient continues to diurese Monitor urine output and creatinine and electrolytes and telemetry monitoring Echocardiogram done during admission-showing moderate mitral regurgitation, moderate TR, moderate AR Troponin trend was negative Physical therapy and case management evaluated the patient and recommended rehab placement and looking for options Type 2 diabetes He was on metformin and we will hold the metformin Sliding scale insulin Spinal scoliosis Chronic pain status post surgery Continue her home pain medications Essential hypertension We will continue her home medications Once her blood pressure Losartan 100 mg continue Nausea probably due to narcotics Ordered Zofran GI cocktail Pantoprazole History of breast cancer Continued raloxifene Hyperlipidemia Continued simvastatin Insomnia Continue trazodone and melatonin DVT prophylaxis-subcu heparin CODE [id number] with the patient Time Spent With Patient Time: Total time spent is greater than 50% in coordination of care (as documented) at patient's floor/unit and/or counseling patient: QUALITY Stroke Symptom Onset Unknown: No VTE Deep Vein Thrombosis/Pulmonary Embolism Present on Admission: No
[2019-11-15] MEDS: 0.9 % SODIUM CHLORIDE 10 ML SYRINGE IV SCH ×2 (05:15→08:56)
[2019-11-15 06:38] LABS: Basophils # (Auto) 0.03 K/mcL (0.00-0.30); Basophils % (Auto) 0.5 % (0.0-2.0); Eosinophils # (Auto) 0.22 K/mcL (0.00-0.70); Eosinophils % (Auto) 3.4 % (0.0-7.0); Granulocytes % (Auto) 52.3 % (38.0-78.0); Hematocrit 33.2 % (34.1-44.9); Hemoglobin 9.8 g/dL (11.2-15.7); Lymphocytes # (Auto) 2.39 K/mcL (1.50-4.80); Lymphocytes % (Auto) 37.1 % (15.5-49.0); Mean Cell Volume 79.2 fL (80.0-100.0); Mean Corpuscular HGB Conc 29.5 g/dL (31.0-36.0); Monocytes # (Auto) 0.43 K/mcL (0.10-0.90); Monocytes % (Auto) 6.7 % (1.0-12.0); Platelet Count 299 K/mcL (140-440); RBC 4.19 M/mcL (3.59-5.38); WBC 6.4 K/mcL (4.50-11.00)
[2019-11-15] MEDS: PANTOPRAZOLE 40 MG TABLET PO SCH (06:46)
[2019-11-15] MEDS: LEVOTHYROXINE 75 MCG TABLET PO SCH ×2 (06:46→11:40)
[2019-11-15] MEDS: INSULIN LISPRO 1 UNIT/0.01 ML UNIT SQ SCH ×2 (06:56→11:41)
[2019-11-15 06:57] LABS: ALT/SGPT 6 U/l (0-40); AST/SGOT 13 U/l (0-37); Albumin 3.7 gm/dL (3.2-5.2); Albumin/Globulin Ratio 1.4 (1.0-2.3); Alkaline Phosphatase 60 U/L (39-117); Bilirubin,Total 0.4 mg/dL (0.0-1.0); Blood Urea Nitrogen 13 mg/dl (8-23); Calcium 8.7 mg/dl (8.6-10.4); Carbon Dioxide 33 mmol/L (22-30); Globulin 2.6 gm/dL (2.2-3.7); Glomerular Filtration Rate 51; Glucose 95 mg/dL (70-105)
[2019-11-15 06:59] LABS: Chloride 95 mmol/L (96-108)
[2019-11-15] MEDS: LOSARTAN 50 MG TABLET PO SCH (08:27)
[2019-11-15] MEDS: POTASSIUM CHLORIDE 20 MEQ TABLET PO SCH (08:27)
[2019-11-15] MEDS: FUROSEMIDE 40 MG TABLET PO SCH (08:27)
[2019-11-15] MEDS: SIMVASTATIN 20 MG TABLET PO SCH (08:27)
[2019-11-15] MEDS: HYDROcodone/APAP 5/325MG TABLET PO SCH (08:28)
[2019-11-15] MEDS: HEPARIN 5,000 UNIT/ML VIAL SQ SCH (08:28)
[2019-11-15] MEDS: RALOXIFENE HCL 60 MG TABLET PO SCH (08:29)
[2019-11-15] MEDS: DOCUSATE SODIUM 100 MG CAPSULE PO SCH (08:29)
[2019-11-15] MEDS: cefTRIAXone 2 GM in DEXTROSE 5% IN WATER 50 ML IV SCH (08:56)
--- NOTE | 2019-11-15 09:28 | Discharge Summary ---
Discharge Provider Provider Patient information: Note initiated : 11/15/19 at 9:26 am Service Date, if different from initiated Date: [] Patient: Zeinab Funez 89 y/o F admitted on 11/11/19 for Shortness of breath. Chief Complaint: [] Date of admission: 11/11/19 16:13 Discharge date: 11/15/19 Primary care physician: Thierno Knutson Consults: 11/11/19 13:45 Consult to Physician [CONS] Stat Comment: Consulting Provider: Contreras Whitaker Reason For Exam: Physician to Consult 11/14/19 15:36 Consult to Physician [CONS] Routine Comment: Consulting Provider: Poncho Laureano Reason For Exam: Physician to Consult Discharge Meds Discharge Medications Active and Home Medications: Home Medications melatonin 5 mg tablet 5 mg PO HS PRN tab 02/12/15 [History Confirmed 11/11/19 Last Taken 11/22/16] Power Wheelchair #1 ea 12/08/18 [Rx Confirmed 11/11/19 Last Taken Unknown] OXYGEN #1 ea 07/13/19 [Rx Confirmed 11/11/19 Last Taken Unknown] levothyroxine 75 mcg tablet 75 mcg PO QDAY #90 tab 08/18/19 [Rx Confirmed 11/11/19 Last Taken 11/11/19 07:00] losartan 100 mg tablet 100 mg PO QDAY #90 tab 08/31/19 [Rx Confirmed 11/11/19 Last Taken 11/11/19 08:00] raloxifene 60 mg tablet 60 mg PO QDAY #90 tab 08/31/19 [Rx Confirmed 11/11/19 Last Taken 11/11/19 08:00] potassium chloride 10 mEq tablet,extended release 10 meq PO QDAY #30 tab 10/11/19 [Rx Confirmed 11/11/19 Last Taken 11/11/19 08:00] ropinirole 0.5 mg tablet 0.5 mg PO QHS #90 tab 10/11/19 [Rx Confirmed 11/11/19 Last Taken 11/10/19 20:00] hydrocodone 7.5 mg-acetaminophen 325 mg tablet 1 tab PO TID PRN #90 tab 10/19/19 [Rx Confirmed 11/11/19 Last Taken 11/11/19 08:00] digoxin 125 mcg (0.125 mg) tablet 125 mcg PO QDAY 90 Days #90 tab 11/01/19 [Rx Confirmed 11/11/19 Last Taken 11/11/19 08:00] simvastatin 20 mg PO QDAY 11/11/19 [History Confirmed 11/11/19 Last Taken 11/11/19 08:00] furosemide 40 mg PO BIDD #30 tab NS 11/15/19 [Rx Last Taken Unknown] quetiapine 25 mg PO HS #30 tab NS 11/15/19 [Rx Last Taken Unknown] COURSE Hospital Course Hospital Course: 89-year-old female with a history of spinal scoliosis status post surgery and chronic pain, history of type 2 diabetes, essential hypertension, hyperlipidemia, hypothyroidism was brought to the ED because of worsening tiredness, shortness of breath with activities and worsening bilateral leg swelling. Patient recently diagnosed with a mitral regurgitation and tricuspid regurgitation which was incidental and since then patient have activities limited and shortness of breath was a major issue which has been progressively worse over the last 2 weeks and her leg swelling has been worsening. Patient takes hydrochlorothiazide and Lasix p.o. without any improvement. Patient was evaluated in the ED and found her to be having acute congestive heart failure based on chest x-ray and with activity she became hypoxic unable to mobilize. Initial work-up negative for sepsis or respiratory infections. 11/11 Patient was admitted overnight and started on IV diuretics Patient had more than 3 L negative urine output Patient is feeling slightly better Monitor urine output and renal panel telemetry monitoring electrolytes unremarkable Continuing IV Lasix Increase patient activities using her walker 11/13 Echocardiogram showed moderate mitral regurgitation, moderate tricuspid regurgitation moderate aortic insufficiency Ejection fraction normal Diastolic dysfunction Patient continues to feel better Physical therapy evaluated and recommended patient would benefit from rehab Case management involved in looking for rehab options 11/14 Patient significantly improved She is diuresing well with the Lasix 40 twice daily Discontinued hydrochlorothiazide Continues a potassium supplement Discontinued metformin as the patient's blood sugar has been well controlled without metformin Discontinue trazodone as the patient was getting confused at night Started on Seroquel 25 mg at bedtime for insomnia Continue physical therapy at the [facility] Patient needs to follow-up with a primary care provider and cardiology if needed Acute congestive heart failure Probable right-sided heart failure Probable due to valvular heart disease Echocardiogram in April 2019 showed evidence of moderate mitral regurgitation, moderate tricuspid regurgitation and pulmonary hypertension Worsening lower extremity edema no significant hypoxia Patient was on hydrochlorothiazide and furosemide proBNP was elevated No evidence of renal failure Troponin x3 and remained negative Plan Patient unable to mobilize and with activity she became hypoxic and short of breath She is volume dependent so we will do gentle diuresis Started on IV Lasix 40 twice daily-continue , Lasix changed to p.o. 40 twice daily and patient continues to diurese Monitor urine output and creatinine and electrolytes and telemetry monitoring Echocardiogram done during admission-showing moderate mitral regurgitation, moderate TR, moderate AR Troponin trend was negative Physical therapy and case management evaluated the patient and recommended rehab Discontinued hydrochlorothiazide which can precipitate uncontrolled diuresis and renal injury with the loop diuretics Type 2 diabetes He was on metformin and we will hold the metformin Blood sugar has been well controlled on a regular diet without metformin Discontinued metformin Spinal scoliosis Chronic pain status post surgery Continue her home pain medications Essential hypertension We will continue her home medications Once her blood pressure Losartan 100 mg continue Nausea probably due to narcotics Ordered Zofran GI cocktail Pantoprazole History of breast cancer Continued raloxifene Hyperlipidemia Continued simvastatin Insomnia Continue trazodone and melatonin Review of system General-mild distress no fever no chills no dizziness Head and neck-no headache no facial drooping, no decreased vision, Respiratory-no cough, shortness of breath with activities Cardiac-shortness of breath with activities present, bilateral leg edema, no palpitations, Abdomen-distended but nontender, no diarrhea no constipation Neuro-no focal neuro deficit, no seizure, no headache Psychiatry-no anxiety no depression no mood changes Discharge diagnosis: Acute on chronic congestive heart failure, worsening valvular heart disease acute diastolic heart Time Spent with Patient Time attestation: Total time spent providing and/or coordinating discharge services: Time spent: Greater than 30 minutes EXAM Constitutional Vitals: Temp Pulse Resp BP Pulse Ox 97.9 F 78 16 130/85 93 11/15/19 07:06 11/14/19 22:19 11/15/19 07:06 11/15/19 07:06 11/15/19 07:06 General appearance: cooperative and obese Head Head exam: Present atraumatic, normal inspection and normocephalic ENT ENT exam: Present normal exam, normal external ear exam and normal oropharynx Neck Neck exam: Present normal inspection; Absent lymphadenopathy and tenderness Respiratory Respiratory exam: Present CTAB; Absent accessory muscle use, respiratory distress and wheezes Cardiovascular Cardiovascular exam: Present diastolic murmur and systolic murmur; Absent JVD and +S4 GI/Abdominal GI/Abdominal exam: Present normal bowel sounds, soft and distended; Absent guarding, rebound and tenderness Neurological Exam Neurological exam: Present alert, oriented X3 and reflexes normal; Absent motor sensory deficit Psychiatric Psychiatric exam: Absent agitated, anxious and depressed Discharge Data Data Completed and Pending Labs on day of discharge: Labs from last 24 hours 11/15/19 11/15/19 11/14/19 04:28 04:28 14:15 WBC 6.4 RBC 4.19 Hgb 9.8 L Hct 33.2 L MCV 79.2 L MCH 23.4 L MCHC 29.5 L RDW 16.0 H Plt Count 299 MPV 10.0 Gran % 52.3 Lymph % (Auto) 37.1 Bertie % (Auto) 6.7 Eos % (Auto) 3.4 Baso % (Auto) 0.5 Gran # 3.37 Lymph # (Auto) 2.39 Bertie # (Auto) 0.43 Eos # (Auto) 0.22 Baso # (Auto) 0.03 Sodium 139 138 Potassium 3.5 3.7 Chloride 95 L 93 L Carbon Dioxide 33 H 30 Anion Gap 11.0 15.0 BUN 13 13 Creatinine 1.0 1.1 GFR Calculation 51 45 Glucose 95 108 H Calcium 8.7 8.8 Total Bilirubin 0.4 0.3 AST 13 16 ALT 6 7 Alkaline Phosphatase 60 60 Total Protein 6.3 6.8 Albumin 3.7 4.1 Globulin 2.6 2.7 Albumin/Globulin Ratio 1.4 1.5 Discharge Plan Patient/Caregiver Discharge Instructions Activity: ambulate only with your walker and as per physical therapy Diet: Low Sodium (2gm) Instructions: Heart Failure (DC) Prescriptions: New quetiapine 25 mg Tablet 25 mg PO HS Qty: 30 RF: 2 furosemide 40 mg Tablet 40 mg PO BIDD Qty: 30 RF: 2 Continued levothyroxine [Synthroid] 75 mcg tablet 75 mcg PO QDAY Qty: 90 RF: 1 losartan [Cozaar] 100 mg tablet 100 mg PO QDAY Qty: 90 RF: 1 raloxifene [Evista] 60 mg tablet 60 mg PO QDAY Qty: 90 RF: 1 digoxin [Lanoxin] 125 mcg (0.125 mg) tablet 125 mcg PO QDAY 90 Days Qty: 90 RF: 1 melatonin 5 mg tablet 5 mg PO HS PRN (Reason: Sleep) RF: 0 ropinirole 0.5 mg tablet 0.5 mg PO QHS Qty: 90 RF: 1 potassium chloride 10 mEq tablet extended release 10 meq PO QDAY Qty: 30 RF: 2 simvastatin 20 mg Tablet 20 mg PO QDAY RF: 0 Discontinued hydrochlorothiazide 25 mg tablet 25 mg PO QDAY Qty: 90 RF: 1 metformin 500 mg tablet extended release 24 hr 1,000 mg PO BID Qty: 360 RF: 0 furosemide 20 mg tablet See Rx Instructions PO QDAY Qty: 60 RF: 1 meclizine 25 mg tablet 25 mg PO BID PRN (Reason: vertigo) Qty: 30 RF: 2 trazodone 50 mg tablet 50 mg PO QHS PRN (Reason: Insomnia) RF: 0 No Action (DME) OXYGEN Qty: 1 RF: 0 hydrocodone-acetaminophen [Lorcet Plus] 7.5-325 mg tablet 1 tab PO TID PRN (Reason: pain) Qty: 90 RF: 0 (DME) Power Wheelchair Qty: 1 RF: 0 Other Ambulatory Orders: OT Discharge Order (Routine) Facility: [facility] - Location: Conversion-[facility] Term Ordered By: Contreras Whitaker Physical Therapy at Discharge - General (Routine) Facility: [facility] - Location: Conversion-Long Term Ordered By: Contreras Whitaker Follow Up Plan Follow up with: Thierno Knutson MD [Primary Care Provider] - (within 7 days) Patient Disposition: Xfer SNF Prognosis: Good Rehab Potential: Fair I certify that the patient requires SNF services: Yes Overall status at discharge: patient is progressing back to baseline Discharge Orders: Discharge Order (Routine); Ordered 11/15/19 Ordered By: Contreras Whitaker QUALITY VTE Deep Vein Thrombosis/Pulmonary Embolism Present on Admission: No
[2019-11-15] MEDS: DIGOXIN 125 MCG TABLET PO SCH (12:40)
== END 2019-11-15 13:10 | DRG 293 ==
LOC: ED 11:07 → ICU 16:13
PROVIDERS: ADMIT Internal Medicine; ATTEND Internal Medicine